=== PATIENT | female | born 1965 | race Caucasian/White ===

== ENCOUNTER 2018-06-13 17:59 | Emergency (ER) | payer OTHER ==
[~2018-06-13] VITALS: Wt 68.0 kg
[~2018-06-13 17:59] MED LIST: AUGMENTIN 875875 MG PO; COMPAZINE10 MG PO; ZANTAC150 MG PO
[2018-06-13] MEDS ORDERED: AUGMENTIN 875875 MG PO (18:17)
[2018-06-13] MEDS ORDERED: FLONASE ALLERG9.9 ML NAS (18:17)
[2018-06-13] MEDS ORDERED: ZYRTEC10 MG PO (18:17)
== END 2018-06-13 18:29 | disposition home or self-care (01) ==
LOC: ED 17:59
DX: J32.9 Chronic sinusitis, unspecified (principal); F17.200 Nicotine dependence, unspecified, uncomplicated

== ENCOUNTER → 2018-12-01 | Outpatient (CLI) | payer OTHER ==
[~2018-12-01] MED LIST changes: +FLONASE ALLERG9.9 ML NAS; +ZYRTEC10 MG PO
== END | disposition home or self-care (01) ==
LOC: MAMMO 13:52
DX: N64.4 Mastodynia (principal); R92.1 Mammographic calcification found on diagnostic imaging of breast

== ENCOUNTER 2021-02-27 10:56 | Emergency (ER) | payer OTHER | END 2021-02-27 11:13 | disposition left against medical advice (07) | LOC: ED 10:56 | DX: U07.1 COVID-19 (principal); R50.9 Fever, unspecified; Z53.21 Procedure and treatment not carried out due to patient leaving prior to being seen by health care provider ==

== ENCOUNTER 2025-04-08 13:56 | Emergency (ER) | payer OTHER ==
[~2025-04-08] VITALS: Ht 152.4 cm; Wt 63.5 kg
[2025-04-08 14:45] LABS: BASO # 0.0 10*3/uL (0.0-0.1); BASO % 0.2 % (0.0-1.0); EOS # 0.0 10*3/uL (0.0-0.4); EOS % 0.0 % (1.0-4.0); MEAN CELL VOLUME 100.5 fl (81.0-99.0); MEAN CORPUSCULAR HGB 33.7 pg (27.0-31.0); MEAN PLATELET VOLUME 9.3 fl (9.6-12.3); MONO # 0.9 10*3/uL (0.1-1.0); MONO % 6.9 % (3.0-9.0); NEUT # 10.0 10*3/uL (2.3-7.9); NEUT % 79.7 % (47.0-73.0); NUCLEATED RED BLOOD CELL 0.0 % (0.0-0.0); NUCLEATED RED BLOOD CELL 0.0 10*3/uL (0.0-0.0); PLATELET COUNT AUTOMATED 244 10*3/uL (130-400); RED CELL DISTRI WIDTH 11.7 % (0-14.5)
[2025-04-08 15:13] LABS: BUN 14 mg/dl (9-23)
== END 2025-04-08 17:13 | disposition home or self-care (01) ==
LOC: ED 13:56
PROVIDERS: Student in an Organized Health Care Education/Training Program
DX: R05.9 Cough, unspecified (principal); Z98.890 Other specified postprocedural states